=== PATIENT | female | born 1960 | race Hispanic/Latino ===

== ENCOUNTER 2017-10-17 13:23 | Outpatient (CLI) | payer OTHER | END 2017-10-17 13:24 | disposition home or self-care (01) | LOC: BICMAMMO 13:23 | PROVIDERS: ATTEND Family Medicine | DX: Z12.31 Encounter for screening mammogram for malignant neoplasm of breast (principal) | CPT/HCPCS: 77067 ==

== ENCOUNTER 2017-10-21 08:21 | Outpatient (CLI) | payer OTHER ==
--- NOTE | 2017-10-21 09:15 | ULT ---
RIGHT UPPER QUADRANT ULTRASOUND: Date: 10-21-17 History: Right upper quadrant abdominal pain. Comparison: 06-10-12 FINDINGS: The liver is again enlarged and measures 18.5 cm in craniocaudal dimensions. No focal hepatic lesion is seen. There was suggestion of fatty infiltration on the prior exam, but the liver demonstrates sim ilar echogenicity to the right kidney on today's exam. The visualized portions of the pancreas, visualized portion of the IVC, gallbladder and right kidney demonstrate a normal sonographic appearance. The right kidney measures 11.4 cm in length. Common duct measures 0.5 cm in diameter. IMPRESSION: 1. Hepatomegaly. 2. No gallbladder calculi are visualized. POS: [facility]
== END 2017-10-21 08:22 | disposition home or self-care (01) ==
LOC: ULT 08:21
PROVIDERS: ATTEND Family Medicine
DX: R10.11 Right upper quadrant pain (principal); R16.0 Hepatomegaly, not elsewhere classified
CPT/HCPCS: 76705

== ENCOUNTER 2017-12-11 11:18 | Day surgery (SDC) | payer OTHER ==
[2017-12-10 16:04] VITALS: BMI 36.5
[~2017-12-11 11:18] MED LIST: Lidocaine 1% PF 5 ML VIAL ONE; PROPOFOL 200 MG/20 ML VIAL ONE
--- NOTE | 2017-12-11 14:42 | OP ---
DATE OF PROCEDURE: 12/11/2017 TITLE OF PROCEDURE: Colonoscopy. PREOPERATIVE DIAGNOSIS: Average risk colon screening. POSTOPERATIVE DIAGNOSES: 1. Exam to distal terminal ileum; good bowel preparation. 2. Normal distal terminal ileum. 3. Normal colon. 4. No polyps identified. 5. Small internal hemorrhoids. PROCEDURE IN DETAIL: Written informed consent was obtained. Upon completion of the EGD, the patient was repositioned for the colonoscopy. Total intravenous anesthesia was provided by Mr. Cristopher kSy CRNA. A digital rectal exam was performed that revealed a small external hemorrhoid that was not thr ombosed. A Pentax video colonoscope was inserted through the anal canal and advanced under direct vi sualization to the cecum. Position in the cecum was verified by identification of the ileocecal valv e and a brief inspection of the distal terminal ileum. The quality of the bowel preparation was good . Endoscopic findings revealed normal appearing distal terminal ileum and colon. Each colon segment was examined carefully as the colonoscope was slowly withdrawn from the cecum. Vascular pattern and haustral folds appeared normal. No polyp, diverticulum or vascular ectasia was identified. In the rectum, a retroflexed view demonstrated small internal hemorrhoids that were not actively bleeding. The colon was decompressed as the colonoscope was completely removed from the patient. She was trans ferred to the day stay surgery area for post-procedure monitoring. There were no immediate complicat ions. RECOMMENDATIONS: 1. High-fiber, low-fat diet. 2. Sitz baths t.i.d. p.r.n. hemorrhoids. 3. Resume previous medications. 4. Repeat colonoscopy in 10 years. 5. Further recommendations as per my EGD report.
--- NOTE | 2017-12-11 14:43 | OP ---
DATE OF PROCEDURE: 12/11/2017 TITLE OF PROCEDURE: Esophagogastroduodenoscopy with biopsy. PREOPERATIVE DIAGNOSIS: Persistent right upper quadrant abdominal pain and bloating. POSTOPERATIVE DIAGNOSES: 1. Small sliding hiatal hernia about 1 cm in length. 2. Otherwise normal esophagogastroduodenoscopy. 3. Random biopsies obtained in the duodenum for histology. ANESTHESIA: Total intravenous anesthesia by Dr. Bond and colleagues. PROCEDURE IN DETAIL: Written informed consent was obtained. The patient was brought to the endoscop y suite. Total intravenous anesthesia was provided by Dr. Bond and associates. A bite block was in serted into the mouth. A Pentax therapeutic gastroscope was introduced into the oral cavity and the esophagus was carefully intubated. The gastroscope was advanced under direct visualization to the se cond portion of the duodenum. Endoscopic findings revealed a small sliding hiatal hernia about 1 cm in length. The esophagus was otherwise normal without evidence of erosion or ulcer. The stomach was entered and carefully examined. This included a retroflexed view of the cardia and fundus. No abno rmalities were seen. The duodenum from the bulb to the second portion was also examined and appeared grossly normal. Random biopsies were obtained in the first and second portion of the duodenum for h istology. No ulcers were identified. The stomach was then decompressed as the endoscope was complet gladis removed from the patient. She was repositioned for the colonoscopy. RECOMMENDATIONS: 1. Resume previous medications. 2. Low fat diet. 3. Use Pepcid 20 mg p.o. b.i.d. p.r.n. heartburn or indigestion. 4. We will order CT scan of the abdomen with IV and oral contrast to further evaluate the mild hepat omegaly seen on recent ultrasound. 5. Follow up in GI office in 3-4 weeks.
[2017-12-11 14:51] LABS: ALT (SGPT) 9 U/L (8-55); AST (SGOT) 15 U/L (5-34); Albumin 3.7 g/dL (3.5-5.0); Alkaline Phosphatase 125 U/L (40-150); Anion Gap 13 mmol/L (10-20); BUN (Urea Nitrogen) 17 mg/dL (9.8-20.1); Bilirubin, Total 0.4 mg/dL (0.2-1.2); Calc. Creatinine Clearance 117 mL/min (70-130); Calcium 9.2 mg/dL (7.8-10.44); Carbon Dioxide 26 mmol/L (22-29); Chloride 103 mmol/L (98-107); Estimated GFR-MDRD 86; Globulin 3.5 g/dL (2.4-3.5); Glucose 102 mg/dL (70-105); Potassium 3.7 mmol/L (3.5-5.1); Protein, Total 7.2 g/dL (6.0-8.3); Sodium 138 mmol/L (136-145)
== END 2017-12-11 15:05 | disposition home or self-care (01) ==
LOC: SDC 11:18
PROVIDERS: ATTEND Internal Medicine Gastroenterology
PROC: 0DB98ZX Excision of Duodenum, Via Natural or Artificial Opening Endoscopic, Diagnostic (ICD-10-PCS; principal; 2017-12-11)
PROC: 0DJD8ZZ Inspection of Lower Intestinal Tract, Via Natural or Artificial Opening Endoscopic (ICD-10-PCS; principal; 2017-12-11)
DX: R10.11 Right upper quadrant pain (principal); K64.8 Other hemorrhoids; K44.9 Diaphragmatic hernia without obstruction or gangrene; E11.9 Type 2 diabetes mellitus without complications; M19.90 Unspecified osteoarthritis, unspecified site; Z79.1 Long term (current) use of non-steroidal anti-inflammatories (NSAID); Z79.82 Long term (current) use of aspirin; Z79.84 Long term (current) use of oral hypoglycemic drugs; Z79.899 Other long term (current) drug therapy
CPT/HCPCS: 36415; 80053; 88305; J2001; J2704

== ENCOUNTER 2017-12-18 08:14 | Outpatient (CLI) | payer OTHER ==
--- NOTE | 2017-12-18 14:52 | NM ---
HIDA SCAN: COMPARISON: None. HISTORY: Unspecified abdominal pain. TECHNIQUE: A hepatobiliary scan was performed after administration of 5 mCi of Technetium 99m mebrofenin. FINDINGS: Prompt uptake of the radiopharmaceutical by the liver is seen. Biliary and gallbladder activity is s een within 15 minutes. Bowel activity is seen within 1 hour. The gallbladder ejection fraction was estimated after administration of 8 ounces of Ensure p.o. This was estimated at 80%. IMPRESSION: Normal hepatobiliary scan. POS: [facility]
== END 2017-12-18 08:15 | disposition home or self-care (01) ==
LOC: NM 08:14
PROVIDERS: ATTEND Surgery
DX: R10.9 Unspecified abdominal pain (principal)
CPT/HCPCS: 78227; A9537

== ENCOUNTER 2017-12-22 08:10 | Outpatient (CLI) | payer OTHER ==
[~2017-12-22 08:10] MED LIST changes: +ISOVUE-370 76%-LOCM 1 ML ONE; -Lidocaine 1% PF 5 ML VIAL ONE; -PROPOFOL 200 MG/20 ML VIAL ONE
== END 2017-12-22 08:11 | disposition home or self-care (01) ==
LOC: BICCT 08:10
PROVIDERS: ATTEND Internal Medicine Gastroenterology
DX: E27.9 Disorder of adrenal gland, unspecified (principal); R16.0 Hepatomegaly, not elsewhere classified
CPT/HCPCS: 74160

== ENCOUNTER 2017-12-30 10:34 | Outpatient (CLI) | payer OTHER | END 2017-12-30 10:35 | disposition home or self-care (01) | LOC: BICCT 10:34 | PROVIDERS: ATTEND Internal Medicine Gastroenterology | DX: D35.01 Benign neoplasm of right adrenal gland (principal); R16.0 Hepatomegaly, not elsewhere classified | CPT/HCPCS: 74150 ==

== ENCOUNTER 2018-08-16 10:08 | Emergency (ER) | payer OTHER ==
[2018-08-16 11:04] LABS: #Eosinphils 0.2 thou/uL (0.0-0.7); #Lymphocytes 2.1 thou/uL (1.20-3.40); #Monocytes 0.5 thou/uL (0.11-0.59); %Basophils 0.3 % (0.0-1.0); %Eosinophils 1.8 % (0.0-10.0); %Lymphocytes 21.8 % (21.0-51.0); %Monocytes 5.2 % (0.0-10.0); %Neutrophils 70.9 % (42.0-75.0); Hemoglobin 12.1 g/dL (12.0-16.0); Mean Corpuscular HGB CONC 33.5 g/dL (32.0-36.0); Mean Corpuscular Volume 86.5 fL (78.0-98.0); Mean Platelet Volume 7.3 fL (7.4-10.4); Platelet Count 410 thou/uL (130-400); RBC Distribution Width 13.1 % (11.5-14.5); Red Blood Cell (RBC) Count 4.19 mill/uL (4.20-5.40); White Blood Cell (WBC) Count 9.8 thou/uL (4.8-10.8)
--- NOTE | 2018-08-16 11:28 | CT ---
HEAD CT WITHOUT CONTRAST: DATE: 08/16/2018. COMPARISON: None. HISTORY: Hyperglycemia. TECHNIQUE: Axial CT imaging obtained at 5 mm intervals from the vertex through the skull base without contrast. FINDINGS: The imaged paranasal sinuses and mastoid air cells are well aerated. There is no displaced calvarial fracture. No intracranial hemorrhage, midline shift, mass effect, or ventricular enlargement. IMPRESSION: No intracranial hemorrhage or displaced calvarial fracture. POS: [facility]
[2018-08-16 11:31] LABS: ALT (SGPT) 11 U/L (8-55); AST (SGOT) 16 U/L (5-34); Albumin 3.8 g/dL (3.5-5.0); Alkaline Phosphatase 134 U/L (40-150); Anion Gap 16 mmol/L (10-20); BUN (Urea Nitrogen) 21 mg/dL (9.8-20.1); Bilirubin, Total 0.6 mg/dL (0.2-1.2); Calc. Creatinine Clearance 0 mL/min (70-130); Calcium 9.4 mg/dL (7.8-10.44); Carbon Dioxide 24 mmol/L (22-29); Estimated GFR-MDRD 73; Glucose 102 mg/dL (70-105); Potassium 4.1 mmol/L (3.5-5.1); Protein, Total 7.8 g/dL (6.0-8.3)
[2018-08-16 11:34] LABS: Chloride 103 mmol/L (98-107); Sodium 139 mmol/L (136-145)
[2018-08-16 14:34] LABS: Anion Gap 14 mmol/L (10-20); BUN (Urea Nitrogen) 22 mg/dL (9.8-20.1); Calc. Creatinine Clearance 0 mL/min (70-130); Calcium 9.6 mg/dL (7.8-10.44); Carbon Dioxide 29 mmol/L (22-29); Chloride 101 mmol/L (98-107); Estimated GFR-MDRD 68; Glucose 123 mg/dL (70-105); Potassium 3.6 mmol/L (3.5-5.1); Sodium 140 mmol/L (136-145)
== END 2018-08-16 12:05 | disposition home or self-care (01) ==
LOC: ERS 10:08
DX: R42 Dizziness and giddiness (principal); E11.9 Type 2 diabetes mellitus without complications; I10 Essential (primary) hypertension; Z79.899 Other long term (current) drug therapy; Z79.84 Long term (current) use of oral hypoglycemic drugs; Z79.82 Long term (current) use of aspirin
CPT/HCPCS: 36415; 36416; 70450; 80053; 84484; 85025; 93005

== ENCOUNTER 2019-08-17 08:33 | Outpatient (CLI) | payer OTHER ==
--- NOTE | 2019-08-17 09:16 | MMO ---
Bilateral MAMMO Bilat Diag DDI+AJ. CLINICAL HISTORY: Patient is 59 years old and is seen for diagnostic exam. The patient has no family history of breast cancer. The patient has no personal history of cancer. VIEWS: The views performed were: bilateral craniocaudal with tomosynthesis; bilateral mediolateral oblique with tomosynthesis; and bilateral mediolateral with tomosynthesis. FILMS COMPARED: The present examination has been compared to prior imaging studies performed at [facility] on 02/26/2016, 08/28/2016, 10/17/2017 and 08/17/2019. This study has been interpreted with the assistance of computer-aided detection. MAMMOGRAM FINDINGS: There are scattered fibroglandular densities. There are stable benign appearing calcifications seen in both breasts. There are no suspicious masses, suspicious calcifications, or new areas of architectural distortion. IMPRESSION: THERE IS NO MAMMOGRAPHIC EVIDENCE OF MALIGNANCY. A ROUTINE FOLLOW-UP MAMMOGRAM IN 1 YEAR IS RECOMMENDED. THE RESULTS OF THIS EXAM WERE SENT TO THE PATIENT. ACR BI-RADS Category 2 - Benign finding MAMMOGRAPHY NOTE: 1. A negative mammogram report should not delay a biopsy if a dominant of clinically suspicious mass is present. 2. Approximately 10% to 15% of breast cancers are not detected by mammography. 3. Adenosis and dense breasts may obscure an underlying neoplasm. Reported by: [facility] STILES MD Electonically Signed: [id number]
--- NOTE | 2019-08-17 09:33 | ULT ---
RIGHT BREAST ULTRASOUND LIMITED: HISTORY: Nipple discharge. FINDINGS: The retroareolar region is evaluated with ultrasound. No evidence for solid or cystic mass. No abno rmal dilated ducts. IMPRESSION: 1. Unremarkable right breast ultrasound examination with attenuation to the retroareolar region. 2. Continued annual followup mammograms. BIRADS category 2, benign findings. If the patient's nipple discharge worsens or becomes bloody, consideration for a followup breast MRI with and without IV contrast might be considered. POS: [facility]
== END 2019-08-17 08:34 | disposition home or self-care (01) ==
LOC: BICMAMMO 08:33
PROVIDERS: ATTEND Family Medicine
DX: N64.52 Nipple discharge (principal)
CPT/HCPCS: 77066; G0279

== ENCOUNTER 2019-09-09 12:47 | Day surgery (SDC) | payer OTHER ==
[~2019-09-09 12:47] MED LIST changes: +Acetaminophen 500 MG TAB PO SCH; -ISOVUE-370 76%-LOCM 1 ML ONE; +Iron Sucrose Complex 500 MG in Sodium Chloride 0.9% 250 ML 250 ML IVPB SCH
[2019-09-09] MEDS ORDERED: Sodium Chloride 0.9% 20 ML ONE (12:52)
[2019-09-09 14:50] VITALS: BP 116/56; TEMP 98.5
== END 2019-09-09 15:06 | disposition home or self-care (01) ==
LOC: ONC/OP 12:47
PROVIDERS: ATTEND Family Medicine
DX: D50.8 Other iron deficiency anemias (principal)
CPT/HCPCS: 96365; J1756; J7050

== ENCOUNTER 2020-07-25 12:06 | Outpatient (CLI) | payer OTHER ==
--- NOTE | 2020-07-25 13:15 | ULT ---
BILATERAL RENAL ULTRASOUND COMPLETE: HISTORY: Stage II chronic kidney disease. FINDINGS: The right kidney measures 11.5 x 5.2 x 5.1 cm. The left kidney measures 11.1 x 5.1 x 5.3 cm. No renal hydronephrosis. A 2 cm diameter left renal cyst. Urinary bladder appears unremarkable. IMPRESSION: Left renal cyst. No renal hydronephrosis. No other acute process. POS: [facility]
== END 2020-07-25 12:07 | disposition home or self-care (01) ==
LOC: BICULT 12:06
PROVIDERS: ATTEND Internal Medicine Nephrology
DX: N18.2 Chronic kidney disease, stage 2 (mild) (principal); N28.1 Cyst of kidney, acquired
CPT/HCPCS: 76770

== ENCOUNTER 2020-10-30 10:16 | Outpatient (CLI) | payer OTHER | END 2020-10-30 10:17 | disposition home or self-care (01) | LOC: DTY/OP 10:16 | PROVIDERS: ATTEND Family Medicine | DX: E11.40 Type 2 diabetes mellitus with diabetic neuropathy, unspecified (principal) | CPT/HCPCS: 97802 ==

== ENCOUNTER 2020-11-08 07:31 | Outpatient (CLI) | payer OTHER ==
[2020-11-08] MEDS ORDERED: ADENOSINE 60 MG/20 ML VIAL ONE (13:23)
== END 2020-11-08 07:32 | disposition home or self-care (01) ==
LOC: NM 07:31
PROVIDERS: ATTEND Family Medicine
DX: R07.89 Other chest pain (principal)
CPT/HCPCS: 78452; 93017; A9500; J0153

== ENCOUNTER 2020-12-14 11:06 | Outpatient (CLI) | payer OTHER | END 2020-12-14 11:07 | disposition home or self-care (01) | LOC: BICRAD 11:06 | PROVIDERS: ATTEND Family Medicine | DX: M75.82 Other shoulder lesions, left shoulder (principal); M25.511 Pain in right shoulder; M19.011 Primary osteoarthritis, right shoulder ==

== ENCOUNTER 2021-03-16 07:44 | Outpatient (CLI) | payer OTHER ==
[2021-03-16] MEDS ORDERED: Iopamidol 370 76% 100 ML VIAL ONE (10:32)
== END 2021-03-16 07:45 | disposition home or self-care (01) ==
LOC: BICCT 07:44
PROVIDERS: ATTEND Physician Assistant Medical
DX: R10.33 Periumbilical pain (principal); R10.11 Right upper quadrant pain; R74.8 Abnormal levels of other serum enzymes; K43.9 Ventral hernia without obstruction or gangrene; E27.8 Other specified disorders of adrenal gland; R93.429 Abnormal radiologic findings on diagnostic imaging of unspecified kidney
CPT/HCPCS: 74177; 82565; Q9967

== ENCOUNTER 2021-04-23 07:55 | Outpatient (CLI) | payer OTHER ==
[2021-04-23] MEDS ORDERED: Magnevist 469MG/ML 20 ML VIAL ONE (12:10)
== END 2021-04-23 07:56 | disposition home or self-care (01) ==
LOC: BICMRI 07:55
PROVIDERS: ATTEND Physician Assistant Medical
DX: E27.8 Other specified disorders of adrenal gland (principal); N28.9 Disorder of kidney and ureter, unspecified; D35.01 Benign neoplasm of right adrenal gland; N28.1 Cyst of kidney, acquired
CPT/HCPCS: 74183; 82565

== ENCOUNTER 2022-01-31 08:31 | Outpatient (CLI) | payer OTHER | END 2022-01-31 08:32 | disposition home or self-care (01) | LOC: NM 08:31 | PROVIDERS: ATTEND Internal Medicine Gastroenterology | DX: R10.13 Epigastric pain (principal); R07.89 Other chest pain | CPT/HCPCS: 78264; A9541 ==

== ENCOUNTER 2022-02-11 12:52 | Outpatient (CLI) | payer OTHER | END 2022-02-11 12:53 | disposition home or self-care (01) | LOC: LABBT 12:52 | PROVIDERS: ATTEND Internal Medicine Gastroenterology | DX: K21.9 Gastro-esophageal reflux disease without esophagitis (principal); K59.00 Constipation, unspecified; Z20.822 Contact with and (suspected) exposure to COVID-19 | CPT/HCPCS: 87811 ==

== ENCOUNTER → 2022-02-14 | Day surgery (SDC) | payer OTHER | LOC: ENDO/OP 11:19 | PROVIDERS: ATTEND Internal Medicine Gastroenterology | DX: K21.9 Gastro-esophageal reflux disease without esophagitis (principal); K59.00 Constipation, unspecified | CPT/HCPCS: 91034 ==

== ENCOUNTER 2023-07-02 10:17 | Outpatient (CLI) | payer OTHER | END 2023-07-02 10:18 | disposition home or self-care (01) | LOC: BICRAD 10:17 | PROVIDERS: ATTEND Student in an Organized Health Care Education/Training Program | DX: M25.561 Pain in right knee (principal); M79.645 Pain in left finger(s); M17.11 Unilateral primary osteoarthritis, right knee ==

== ENCOUNTER 2023-12-09 09:30 | Outpatient (CLI) | payer OTHER ==
[2023-12-09] MEDS ORDERED: Regadenoson 0.4 MG/5 ML SYRINGE ONE (11:37)
== END 2023-12-09 09:31 | disposition home or self-care (01) ==
LOC: NM 09:30
PROVIDERS: ATTEND Internal Medicine
DX: R07.9 Chest pain, unspecified (principal)
CPT/HCPCS: 78452; 93017; A9502; J2785

== ENCOUNTER 2024-01-06 14:36 | Outpatient (CLI) | payer OTHER | END 2024-01-06 14:37 | disposition home or self-care (01) | LOC: ULT 14:36 | PROVIDERS: ATTEND Otolaryngology Plastic Surgery within the Head & Neck | DX: E04.1 Nontoxic single thyroid nodule (principal) | CPT/HCPCS: 76536 ==

== ENCOUNTER 2024-02-20 10:52 | Outpatient (CLI) | payer OTHER | END 2024-02-20 10:53 | disposition home or self-care (01) | LOC: BICMAMMO 10:52 | PROVIDERS: ATTEND Student in an Organized Health Care Education/Training Program | DX: Z12.31 Encounter for screening mammogram for malignant neoplasm of breast (principal) | CPT/HCPCS: 77067 ==

== ENCOUNTER 2025-05-05 11:47 | Outpatient (CLI) | payer OTHER | END 2025-05-05 11:48 | disposition home or self-care (01) | LOC: BICMAMMO 11:47 | PROVIDERS: ATTEND Obstetrics & Gynecology | DX: Z12.31 Encounter for screening mammogram for malignant neoplasm of breast (principal) | CPT/HCPCS: 77063; 77067 ==

== ENCOUNTER 2025-06-23 08:00 | Outpatient (CLI) | payer OTHER | END 2025-06-23 08:01 | disposition home or self-care (01) | LOC: NM 08:00 | PROVIDERS: ATTEND Internal Medicine Cardiovascular Disease | DX: I50.9 Heart failure, unspecified (principal) | CPT/HCPCS: 78452; 93017; A9502; J2785 ==